=== PATIENT | male | born 1940 | race Caucasian/White ===

== ENCOUNTER 2016-03-29 12:46 | Day surgery (SDC) | payer MEDICARE, OTHER ==
[~2016-03-29] VITALS: Ht 180.3 cm; Wt 108.1 kg
[2016-03-29] VITALS (10 sets, daily range): BP systolic 108–153; BP diastolic 39–80; PULSE 68–94; RESP 11–16; O2SAT 91–95
[~2016-03-29 12:46] MED LIST: ACET-171 PO; AMLO5TAB2 PO; ASCO-294 PO; ASPI-973 PO; CHOL100045 PO; CYAN10008 PO; CeFAZolin Inj 2 GM in IV Premix 1 EACH IV ONE; DEXT5TAB23 PO; DOXA2TAB52 PO; FERR325T6 PO; FINA5TAB9 PO; FLUT9.9S NS; IMMODIUM A-D PO; KEN1O TP; LACT1CAP65 PO; LISD70CA2 PO; LORA10CA PO; LOSA100T29 PO; Lactated Ringer's 1,000 ML IV ONE; METO25TA6 PO; MULT-1018 PO; MYBETRIQ PO; OMEP20CA11 PO; OXYC5TAB72 PO; POLY17PO6 PO; PRAM0.252 PO; TRAM50TA2 PO; TROS20TA4 PO; WARF5TAB7 PO
[2016-03-29] MEDS ORDERED: Ondansetron 2 mg/mL 2 mL Inj ONE (12:47)
[2016-03-29] MEDS ORDERED: Vasopressin 20 Unit/mL Inj ONE (12:47)
[2016-03-29] MEDS ORDERED: Propofol 10,000 mCg/mL 20 mL Inj ONE (12:47)
[2016-03-29] MEDS ORDERED: EPHEDrine/NS 5 mg/mL 5 mL Syringe ONE (12:47)
[2016-03-29] MEDS ORDERED: fentaNYL-PF 50 mCg/mL 2 mL Inj ONE (12:47)
[2016-03-29] MEDS ORDERED: Phenylephrine/NS 100 mCg/mL 10 mL Syringe IVPUSH ONE (12:47)
[2016-03-29 14:51] LABS: INR 0.98 ratio
--- NOTE | 2016-03-29 16:16 | PCM.HPANE ---
Patient Data Surgeon Admitting Provider: Attending Provider:Savannah Rao MD Primary Care Physician:Christiano Nair MD Other Provider: Reason for Visit Bladder Tumor Ht/WT & BMI Height (Feet): 5 Height (Inches): 11 Weight (Kilograms): 109.32 Body Mass Index 33.00 Allergies Coded Allergies: garlic (Verified Allergy, Unknown, 03/29/16) hydrochlorothiazide (Verified Allergy, Unknown, UNKNOWN, 03/29/16) imipramine (Verified Allergy, Unknown, UNKNOWN, 03/29/16) lisinopril (Verified Allergy, Unknown, UNKNOWN, 03/29/16) methocarbamol (Verified Allergy, Unknown, UNKNOWN, 03/29/16) onion (Verified Allergy, Unknown, 03/29/16) tamsulosin (Verified Allergy, Unknown, UNKNOWN, 03/29/16) topiramate (Verified Allergy, Unknown, UNKNOWN, 03/29/16) triamterene (Verified Allergy, Unknown, UNKNOWN, 03/29/16) Past Anesthesia History Anesthesia History: Denies:: Anesthesia Reactions, Malignant Hyperthermia Diabetes History Hx Diabetes?: No MRSA MRSA: No Medications Blood Thinner: Aspirin and Coumadin Last Dose Blood Thinner: Mar 22, 2016 Hypertension Medication: Yes (LOSARTAN, AMLODIPINE,DOXAZOSIN) Home Meds Incl Beta Adelaida: Yes (METOPROLOL) Reported Medications Lisdexamfetamine Dimesylate (Vyvanse)70 Mg Dmbrpyc97 Mg PO DAILY 30 Days Ref 0 03/25/16 Cholecalciferol (Vitamin D3) (Vitamin D)1,000 Unit Capsule3,000 Unit PO DAILY # 1 BOTTLE Ref 0 03/25/16 Ascorbate Calcium (Vitamin C)500 Mg Vznbbu368 Mg PO DAILY 03/25/16 Cyanocobalamin (Vitamin B-12) (Vitamin B-12)1,000 Mcg Tablet1,000 Mcg PO DAILY 03/25/16 Trospium Chloride 20 Mg Tvzikf14 Mg PO BID 03/25/16 Triamcinolone Acet (Triamcinolone Acetonide Ointment)1 Applic/0.25 Gm Oint1 Applic TP BID #60 GM Ref 0 0.1% 03/25/16 Tramadol 50 Mg Tlkmjk81 Mg PO Q4H PRN For Pain Ref 0 03/25/16 Lactobacillus Acidophilus (Probiotic)1 Each Capsule2 Each PO DAILY 03/25/16 Pramipexole Dihydrochloride (Mirapex)0.25 Mg Tablet0.25 Mg PO QID TAKES 02/22 0.25MG TAB 03/25/16 Polyethylene Glycol 3350 (Miralax)17 Gm Powd.pack17 Gm PO DAILY PRN PRN 03/25/16 oxyCODONE 5 Mg Tablet5 Mg PO HS PRN For Pain Ref 0 03/25/16 Omeprazole 20 Mg Capsule.dr20 Mg PO BID Ref 0 03/25/16 [Mybetriq] No Conflict Check50 Mg PO DAILY 03/25/16 Multivitamin (Multi Vitamin Daily)1 Each Tablet1 Each PO DAILY 30 Days Ref 0 03/25/16 Metoprolol Tartrate 25 Mg Kbslkd65 Mg PO BID 30 Days Ref 0 03/25/16 Losartan Potassium 100 Mg Bjhsvz018 Mg PO DAILY 03/25/16 Loratadine (Claritin)10 Mg Pludmvx26 Mg PO DAILY Ref 0 03/25/16 Ferrous Sulfate 325 Mg Tablet.dr325 Mg PO DAILY 30 Days Ref 0 03/25/16 [Immodium A-D] No Conflict Check2-4 Mg PO PRN 03/25/16 Fluticasone Propionate (Flonase Allergy Relief)50 Mcg/Actuation [place].susp9.9 Ml NS DAILY PRN PRN 03/25/16 Finasteride 5 Mg Tablet5 Mg PO DAILY 30 Days Ref 0 03/25/16 Doxazosin (Cardura)2 Mg Tablet2 Mg PO HS Ref 0 03/25/16 Amlodipine 5 Mg Tablet5 Mg PO DAILY Ref 0 03/25/16 Dextroamphetamine/Amphetamine (Adderall)5 Mg Tablet5 Mg PO DAILY PRN PRN Ref 0 03/25/16 Acetaminophen 500 Mg Tablet1,000 Mg PO TID PRN For Pain 03/25/16 Warfarin Sodium 5 Mg Tablet5 Mg PO DAILY 30 Days Ref 0 03/25/16 Aspirin 81 Mg Qyjjbj81 Mg PO DAILY Ref 0 03/25/16 History History of ENT Problems?: Yes HEENT History: Positive for:: Dysphagia (HX OF ESOPHAGEAL STRICTURE) Sinus Problem (SEASONAL ALLERGIES) Other HEENT Pertinent History: S/P TONSILLECTOMY Hx of Heart Problems?: Yes Cardiovascular History: Positive for:: Abdominal Aortic Aneurism (ASCENDING AORTA MOD ENLARGED ON ECHO 09/2013) Hypertension (HYPERLIPIDEMIA) Denies:: Heart Murmur (ECHO 09/2013 EF 55-60%) Irregular Heartbeat (09/2013 C/OF PALPITATIONS ZIO PATCH SOWED PVC'S & BURSTS OF SVT) Valvular Heart Disease Hx of Respiratory Problem?: Yes Respiratory History: Positive for:: Dyspnea (SOTELO) Use of C-PAP Machine (HX OF GENI+ IN PAST-PT DENIES PROBLEMS NOW & USES NO CPAP ) Other Resp Pertinent History: HX OF CATAPEXY/NARCOLEPSY Hx Neurologic Problems?: Yes Other Neurological Pertinent: RLS Hx of GI Problems?: Yes Gastrointestinal History: Positive for:: Gastroesphageal Reflux Other GI Pertinent History: C/OF DIARRHEA & OPIOID-INDUCED CONSTIPATION Hx of Problems?: Yes Other Pertinent History: BLADDER TUMOR=CURRENT PROBLEM C/OF DECREASED STREAM,HEMATURIA,FREQUENCY,NOCTURIA,ED Male Hx: Positive for:: Prostate Problems (BPH W/ LUTS) Denies:: Scrotal Mass Testicular Surgery Skin History: Positive for:: History Skin Disorders? (ACTINIC KERATOSIS) Denies:: Pressure Ulcers Hx Musculoskeletal Problems?: Yes Musculoskeletal History: Positive for:: Musculoskeletal Trauma (S/P LT HIP RPR ) Osteoarthritis (KNEES) Denies:: Back Injury (C/OF LOWER BACK PAIN-HAS HAD INJECTION @ [facility] IN THE PAST) Hx of Psycho/Social Problems?: Yes Psycho Social History: Positive for:: Anxiety Hx Surgeries?: Yes (LT HIP RPR,TONSILLECTOMY) Hx Any Other Health Problems?: Yes Other History: Positive for:: Cancer (BLADDER) Denies:: Endocrine Disease (C/OF NIGHT SWEATS) Hospitalization Thyroid Disease History Blood Transfusions: Denies:: Blood Transfusions Hx Diabetes: No Have You Smoked inLast 12 mo: No Stop/Bang S-Snoring: Do You Snore Loudly: Yes T-Tired: feel tired, fatigued: Yes O-Obsered: Observed not breath: No P-Blood Pressure: treated: Yes B- Body Mass Index > 35 kg/m2: No A- Age over 50: Yes N- Neck Large Circumference: Yes G- Gender Male: Yes GENI Total Score: 6 Risk Assessment Category Category 1A: Patient has history of documented sleep apnea, and HAS NOT received any narcotic, sedative or anesthesia administration during this stay. Category 1B: Patient has history of documented sleep apnea, and HAS received any narcotic , sedative or anesthesia administration during this stay Category 2: Patient has SUSPECTED Obstructive Sleep Apnea, and HAS received any narcotic , sedative or anesthesia administration during this stay. Category 3: Patient has SUSPECTED Obstructive Sleep Apnea and HAS NOT received narcotic, sedative or anesthesia administration during this stay. Category 4: Outpatient in Procedural Areas with known sleep apnea or who screen positive for High Risk via the STOP/BANG questionnaire. Exam Exam General Appearance: Alert, Oriented X3, Cooperative, No Acute Distress HEENT/AIRWAY: MP 3 Lungs: Clear to Auscultation Heart: Exam Unremarkable Plan Impression Patient chart reviewed, patient interviewed and anesthestic plan with risks, benefits, and alternatives discussed, and informed consent obtained. ASA Physical Status: ASA3 Severe Disease Anesthetic Plan: GA Bene/Risks/Altern/Consents: Yes HP Complete Prior to Induction: Yes Bhupendra Ash MD Mar 29, 2016 08:58
[2016-03-29] MEDS ORDERED: Lactated Ringer's 500 ML IV PRN (16:18)
[2016-03-29] MEDS ORDERED: Lactated Ringer's 1,000 ML IV SCH (16:18)
[2016-03-29] MEDS ORDERED: Dexamethasone 4 mg/mL Inj IVPUSH PRN (16:20)
[2016-03-29] MEDS ORDERED: Phenylephrine 10,000 mCg/mL Inj IVPUSH PRN (16:20)
[2016-03-29] MEDS ORDERED: fentaNYL-PF 50 mCg/mL 2 mL Inj IVPUSH PRN (16:20)
[2016-03-29] MEDS ORDERED: HYDROmorphone 1 mg/mL Inj IVPUSH PRN (16:20)
[2016-03-29] MEDS ORDERED: EPHEDrine Sulfate 50 mg/mL Inj IVPUSH PRN (16:20)
[2016-03-29] MEDS ORDERED: MetoCLOpramide 5 mg/mL 2 mL Inj IVPUSH PRN (16:20)
[2016-03-29] MEDS ORDERED: Ondansetron 2 mg/mL 2 mL Inj IVPUSH PRN (16:20)
[2016-03-29] MEDS ORDERED: HYDROcodone-APAP 5-325 mg Tablet PO PRN (16:55)
--- NOTE | 2016-03-29 17:26 | PCM.ANEP1 ---
Post Anesthesia Phase 1 PACU Phase 1 Assessment Vital Signs Vital Signs Date Time Temp Pulse Resp B/P Pulse Ox O2 Delivery O2 Flow Rate FiO2 03/29/16 17:15 36.4 68 16 126/68 94 Room Air 03/29/16 17:10 71 11 108/39 95 Room Air 03/29/16 17:05 70 13 153/73 95 Room Air 03/29/16 17:00 72 14 92 Room Air 03/29/16 16:55 94 12 122/64 91 Simple Mask 8 03/29/16 16:53 36.4 76 16 122/62 92 Simple Mask 8 03/29/16 13:15 36.9 80 14 133/77 92 Room Air Anesthetic Administered: GA Level of Alertness: Awake, talking SCHAEFER's with Equal Strength: Yes Pain: Yes Nausea or Vomiting: No Airway Device: Nasal Airway Oxygen Delivery: Simple Mask Lungs: Clear to Auscultation Dermatome Level: Full Sensation Bhupendra Ash MD Mar 29, 2016 17:26
--- NOTE | 2016-03-29 17:27 | PCM.ANEP2 ---
Post Anesthesia Evaluation ASA/CMS Post Anesthesia VS in Patient's Normal Range?: Yes Resp Stable; Airway Patent?: Yes CV Function & Hydration Stable: Yes Mental Status Recovered?: Yes Pain control Satisfactory?: Yes N/V Control Satisfactory?: Yes Bhupendra Ash MD Mar 29, 2016 17:27
--- NOTE | 2016-03-30 00:36 | OP ---
[address] [address] OPERATIVE REPORT PATIENT: JOSUE LALA : 1940 MR#: [id number] ADMIT: 03/29/2016 JOB ID: [id number] CORRECTED REPORT: DATE OF SURGERY: 03/29/2016 PREOPERATIVE DIAGNOSIS(ES): 1. Bladder tumor. 2. Bladder stones. POSTOPERATIVE DIAGNOSIS(ES): 1. Bladder tumor. 2. Bladder stones. PROCEDURE PERFORMED: 1. Cystoscopy. 2. Cystolitholapaxy. 3. Transurethral section of bladder tumor (greater than 5 cm). 4. Rectal examination under anesthesia. SURGEON: Savannah Rao MD. I&C TECH: None. FINDINGS: 1. Bilateral orthotopic ureteral orifices. 2. Hyperemic bladder base. 3. Low-lying papillary tumors, especially over the right base, lesser so on the left base. There was a distinct tumor at the posterior aspect of the bladder. There are a few scattered papillary tumors, the rest were low-lying papillary tumors carpeting the bladder base. 4. Normal prostate, smooth without nodules. No fixed masses or palpable anomalies on rectal exam. ANESTHESIA: General. ESTIMATED BLOOD LOSS: Less than 5 mL. DRAINS: None. SPECIMENS: Bladder tumor. COMPLICATIONS: None. CONDITION: Stable. INDICATION FOR PROCEDURE: The patient is a 76-year-old gentleman with bladder tumors. On cystoscopy in clinic there was also found to be small bladder stones present. DESCRIPTION OF PROCEDURE: After informed consent was obtained, patient was taken to the operating room. A time-out was performed, identifying correct patient, surgical site and procedure. General anesthesia was smoothly induced. He was given intravenous antibiotics just prior to the start of the procedure. He was placed in the lithotomy position. All pressure points were identified and appropriately padded. A bimanual rectal exam performed. These findings are aforementioned. Genitals were then prepped and draped in usual sterile fashion. A 26-Maltese resectoscope was then applied to patient's urethra and advanced to the bladder. The bladder was drained. Bladder was systematically inspected with both 30 and 70 degree lenses. There were numerous small bladder stones. Some of them were adherent to the carpeted tumor, others were free-floating. These were manipulated off of the bladder tumors with the loop cautery. The stones were evacuated. There were papillary tumors at the base of the bladder in proximity to the bladder neck, encroaching, but not involving, the ureteral orifices. These were resected. Most of the tumor was low- lying and the patient's bladder lining is so thin, it was decided after obtaining specimen with gross muscle present that the rest should be fulgurated with the button. The patient's bladder was drained multiple times and there was excellent hemostasis at the end of the procedure. Patient appeared to tolerate the procedure without apparent complications. He was reversed from general anesthesia and taken to PACU in good and stable condition. Corrected by BD 05/19/16 2:46 pm addenda MTDD
--- NOTE | 2016-03-31 10:44 | PATH ---
SURGICAL PATHOLOGY Attending Physician:Savannah Rao, CASE STATUS: Signed Out PATIENT NAME: JOSUE LALA PID: [id number] : 1940 DATE COLLECTED:03/29/2016 00:00 SPECIMEN: Bladder, Biopsy CLINICAL HISTORY: 1). BLADDER TUMOR FINAL DIAGNOSIS: 1.URINARY BLADDER BIOPSY: PAPILLARY UROTHELIAL CARCINOMA, HIGH GRADE. NEGATIVE FOR EVIDENCE OF INVASION OF LAMINA PROPRIA. NO MUSCULARIS PROPRIA TISSUE IDENTIFIED. ICD10 code C67.9 NOTE: As part of a routine corporate quality engineer, Dr. Delgado Larsen has also reviewed this case and agrees with the diagnosis. GROSS DESCRIPTION: The specimen is received in one formalin filled container labeled with the patient's name, sublabeled "bladder tumor" and consists of multiple portions of tissue which aggregate to 0.6 x 0.6 x 0.3 CM. The specimen is entirely submitted in one cassette. 03/30/2016 [facility] MICRO DESCRIPTION: See diagnosis. ICD-9 CODES: CPT CODES: 1: 91815 Electronically Signed Out Rafal Batres MD [facility] Pathology [facility] [address], [place] [address] Technical component performed at [facility], [facility] [address], [place], [address]
[2016-07-30] MEDS ORDERED: CALC-990 PO (10:25)
[2016-07-30] MEDS ORDERED: TROS20TA4 PO (10:25)
[2016-07-30] MEDS ORDERED: FAMO40TA6 PO (10:25)
== END 2016-03-29 23:59 | disposition home or self-care (01) ==
LOC: SAS 12:46
PROVIDERS: ATTEND Urology
DX: C67.8 Malignant neoplasm of overlapping sites of bladder (principal); R13.10 Dysphagia, unspecified; I10 Essential (primary) hypertension; K21.9 Gastro-esophageal reflux disease without esophagitis; M19.90 Unspecified osteoarthritis, unspecified site; I71.4 Abdominal aortic aneurysm, without rupture; G25.81 Restless legs syndrome; F41.9 Anxiety disorder, unspecified; Z79.82 Long term (current) use of aspirin; Z79.01 Long term (current) use of anticoagulants; Z79.899 Other long term (current) drug therapy
CPT/HCPCS: 36415; 52234; 85610; 88305; J0690; J1170; J2370; J2405; J3010; J7120

== ENCOUNTER 2016-08-02 11:49 | Day surgery (SDC) | payer MEDICARE, OTHER ==
[~2016-08-02] VITALS: Ht 180.3 cm; Wt 107.2 kg
[2016-08-02] VITALS (7 sets, daily range): BP systolic 120–143; BP diastolic 65–92; PULSE 63–70; RESP 12–16; O2SAT 94–100
[~2016-08-02 11:49] MED LIST changes: +CALC-990 PO; -CeFAZolin Inj 2 GM in IV Premix 1 EACH IV ONE; +FAMO40TA6 PO; -FERR325T6 PO; -IMMODIUM A-D PO; +Levofloxacin 500 mg/100 mL D5W IV ONE; -OMEP20CA11 PO; -OXYC5TAB72 PO; -POLY17PO6 PO
[2016-08-02] MEDS ORDERED: Dexamethasone 4 mg/mL Inj ONE (11:50)
[2016-08-02] MEDS ORDERED: Propofol 10,000 mCg/mL 20 mL Inj ONE (11:50)
[2016-08-02] MEDS ORDERED: fentaNYL-PF 50 mCg/mL 2 mL Inj ONE (11:50)
[2016-08-02] MEDS ORDERED: Phenylephrine/NS 100 mCg/mL 10 mL Syringe IVPUSH ONE (11:50)
[2016-08-02] MEDS ORDERED: levoFLOXacin 500 mg/100 mL D5W Premix IV ONE (12:03)
[2016-08-02] MEDS ORDERED: HYDR-3740 PO (12:17)
[2016-08-02] MEDS ORDERED: DIPH25CA6 PO (12:17)
[2016-08-02 13:11] LABS: INR 0.93 ratio
[2016-08-02] MEDS ORDERED: HYDROmorphone 1 mg/mL Inj IVPUSH PRN (14:55)
[2016-08-02] MEDS ORDERED: Lactated Ringer's 1,000 ML IV SCH (14:55)
[2016-08-02] MEDS ORDERED: MetoCLOpramide 5 mg/mL 2 mL Inj IVPUSH PRN (14:55)
[2016-08-02] MEDS ORDERED: Phenylephrine 10,000 mCg/mL Inj IVPUSH PRN (14:55)
[2016-08-02] MEDS ORDERED: fentaNYL-PF 50 mCg/mL 2 mL Inj IVPUSH PRN (14:55)
[2016-08-02] MEDS ORDERED: Labetalol 5 mg/mL 4 mL Inj IV PRN (14:55)
[2016-08-02] MEDS ORDERED: Atropine 0.4 mg/mL Inj IVPUSH PRN (14:55)
[2016-08-02] MEDS ORDERED: Lactated Ringer's 500 ML IV PRN (14:55)
[2016-08-02] MEDS ORDERED: EPHEDrine Sulfate 50 mg/mL Inj IVPUSH PRN (14:55)
[2016-08-02] MEDS ORDERED: Ondansetron 2 mg/mL 2 mL Inj IVPUSH PRN (14:55)
--- NOTE | 2016-08-02 14:55 | PCM.HPANE ---
Patient Data Surgeon Admitting Provider: Attending Provider:Savannah Rao MD Primary Care Physician:Champ Ochoa DO Other Provider:Eva Costa Anesthesia Reason for Visit Bladder Tumor Ht/WT & BMI Height (Feet): 5 Height (Inches): 11 Weight (Kilograms): 107.2 Body Mass Index 33.00 Allergies Coded Allergies: garlic (Verified Allergy, Unknown, UNKNOWN, 08/02/16) hydrochlorothiazide (Verified Allergy, Unknown, UNKNOWN, 08/02/16) imipramine (Verified Allergy, Unknown, UNKNOWN, 08/02/16) lisinopril (Verified Allergy, Unknown, UNKNOWN, 08/02/16) methocarbamol (Verified Allergy, Unknown, UNKNOWN, 08/02/16) onion (Verified Allergy, Unknown, UNKNOWN, 08/02/16) tamsulosin (Verified Allergy, Unknown, UNKNOWN, 08/02/16) topiramate (Verified Allergy, Unknown, UNKNOWN, 08/02/16) triamterene (Verified Allergy, Unknown, UNKNOWN, 08/02/16) Past Anesthesia History Anesthesia History: Denies:: Abnormal Airway, Anesthesia Reactions, Difficult Intubation, Fam Anesthesia Reaction, Fam Malignant Hypertherm, Malignant Hyperthermia Diabetes History Hx Diabetes?: No MRSA MRSA: No Medications Blood Thinner: Aspirin and Coumadin Hypertension Medication: Yes (AMLODIPINE,LOSARTAN) Home Meds Incl Beta Adelaida: Yes (METOPROLOL ) Date Beta Adelaida Taken: Aug 02, 2016 Time Beta Adelaida Taken: 0700 Previous Beta Adelaida Dose >24: Previous Dose <24 Hours Reported Medications Hydrocodone-Acetaminophen 10-325 mg 1 Each Tablet1 Tablet PO Q4H PRN For Pain Ref 0 08/02/16 diphenhydrAMINE HCl (Benadryl)25 Mg Upjfujr59 Mg PO HS PRN Ref 0 08/02/16 Trospium Chloride 20 Mg Zoiixn27 Mg PO BID PRN BLADDER 07/30/16 Calcium Carb/Mag Ox/Zinc Sulf (Aefinve-Iagfswfrk-Blbm Tablet)334 Mg-134 Mg-5 Mg Tablet1 Each PO DAILY 07/30/16 Lisdexamfetamine Dimesylate (Vyvanse)70 Mg Elayrrq24 Mg PO DAILY 30 Days Ref 0 03/25/16 Cholecalciferol (Vitamin D3) (Vitamin D)1,000 Unit Capsule3,000 Unit PO DAILY # 1 BOTTLE Ref 0 03/25/16 Ascorbate Calcium (Vitamin C)500 Mg Pgbils460 Mg PO DAILY 03/25/16 Cyanocobalamin (Vitamin B-12) (Vitamin B-12)1,000 Mcg Tablet1,000 Mcg PO DAILY 03/25/16 Triamcinolone Acet (Triamcinolone Acetonide Ointment)1 Applic/0.25 Gm Oint1 Applic TP BID #60 GM Ref 0 0.1% 03/25/16 Tramadol 50 Mg Htzfae88 Mg PO Q4H PRN For Pain Ref 0 03/25/16 Lactobacillus Acidophilus (Probiotic)1 Each Capsule2 Each PO DAILY 03/25/16 Pramipexole Dihydrochloride (Mirapex)0.25 Mg Tablet0.25 Mg PO QID TAKES 02/22 0.25MG TAB 03/25/16 [Mybetriq] No Conflict Check50 Mg PO DAILY PRN BLADDER 03/25/16 Multivitamin (Multi Vitamin Daily)1 Each Tablet1 Each PO DAILY 30 Days Ref 0 03/25/16 Metoprolol Tartrate 25 Mg Jszrja54 Mg PO BID 30 Days Ref 0 03/25/16 Losartan Potassium 100 Mg Dbsiql93 Mg PO BID 03/25/16 Loratadine (Claritin)10 Mg Wiwzdvh61 Mg PO DAILY Ref 0 03/25/16 Fluticasone Propionate (Flonase Allergy Relief)50 Mcg/Actuation [place].susp9.9 Ml NS DAILY PRN PRN 03/25/16 Finasteride 5 Mg Tablet5 Mg PO DAILY 30 Days Ref 0 03/25/16 Doxazosin (Cardura)2 Mg Tablet2 Mg PO HS Ref 0 03/25/16 Amlodipine 5 Mg Tablet2.5 Mg PO BID Ref 0 03/25/16 Dextroamphetamine/Amphetamine (Adderall)5 Mg Tablet5 Mg PO DAILY PRN PRN Ref 0 03/25/16 Warfarin Sodium 5 Mg Tablet5 Mg PO DAILY 30 Days Ref 0 03/25/16 Aspirin 81 Mg Xhdatd94 Mg PO DAILY Ref 0 03/25/16 Discontinued Reported Medications Famotidine 40 Mg Ncoeag86 Mg PO HS Ref 0 07/30/16 Trospium Chloride 20 Mg Fqhnoi01 Mg PO BID 03/25/16 Acetaminophen 500 Mg Tablet1,000 Mg PO TID PRN For Pain 03/25/16 oxyCODONE 5 Mg Tablet5 Mg PO HS PRN For Pain Ref 0 03/25/16 Omeprazole 20 Mg Capsule.dr20 Mg PO BID Ref 0 03/25/16 Ferrous Sulfate 325 Mg Tablet.dr325 Mg PO DAILY 30 Days Ref 0 03/25/16 [Immodium A-D] No Conflict Check2-4 Mg PO PRN 03/25/16 History History of ENT Problems?: Yes HEENT History: Positive for:: Dysphagia (HX OF ESOPHAGEAL STRICTURE) Sinus Problem (SEASONAL ALLERGIES) Denies:: Abnormal Airway Cataracts Difficult Intubation Glaucoma Hearing Problem TMJ Denture Type: None Teeth Condition: Within Normal Limits Other HEENT Pertinent History: S/P TONSILLECTOMY Hx of Heart Problems?: Yes Cardiovascular History: Positive for:: Abdominal Aortic Aneurism (ASCENDING AORTA MOD ENLARGED ON ECHO 09/2013) Atrial Fibrillation (HX PAF) Hypertension (HYPERLIPIDEMIA) Denies:: Heart Murmur (ECHO 09/2013 EF 55-60%) Irregular Heartbeat (09/2013 C/OF PALPITATIONS ZIO PATCH SOWED PVC'S & BURSTS OF SVT) Valvular Heart Disease Other Cardiac History: denies recent CP or SOTELO Hx of Respiratory Problem?: Yes Respiratory History: Positive for:: Dyspnea (SOTELO) Use of C-PAP Machine (HX OF GENI+ NO CPAP O2 SAT STUDY 05/2016 ??PLANNING SLEEP STUDY) Other Resp Pertinent History: HX CATAPLEXY/NARCOLEPSY Hx Neurologic Problems?: Yes Other Neurological Pertinent: RLS Hx of GI Problems?: Yes Other GI Pertinent History: C/OF INTERMITTANT OPIOD-INDUCED CONSTIPATION Hx of Problems?: Yes Other Pertinent History: HX BLADDER CA,HEMATURIA,LUTS,ED BLADDER TUMOR-=CURRENT PROBLEM S/P TURBT COMPLETED BCG 06/11/16 Male Hx: Positive for:: Prostate Problems (BPH W/ LUTS) Denies:: Scrotal Mass Testicular Surgery Skin History: Positive for:: History Skin Disorders? (ACTINIC KERATOSIS) Denies:: Pressure Ulcers Hx Musculoskeletal Problems?: Yes Musculoskeletal History: Positive for:: Musculoskeletal Trauma (S/P LT HIP RPR ) Osteoarthritis (KNEES) Denies:: Back Injury (C/OF LOWER BACK PAIN-HAS HAD INJECTION @ [facility] IN THE PAST) Hx of Psycho/Social Problems?: Yes Psycho Social History: Positive for:: Anxiety Hx Surgeries?: Yes (LT HIP RPR,TONSILLECTOMY,BCG,TURBT) Hx Any Other Health Problems?: Yes Other History: Positive for:: Cancer (BLADDER) Denies:: Endocrine Disease (C/OF NIGHT SWEATS) Hospitalization Thyroid Disease History Blood Transfusions: Denies:: Blood Transfusions Hx Diabetes: No Smoking Status: Former Smoker Have You Smoked inLast 12 mo: NoApprox How Many Cigarettes/day: CIGARS-2YR HX Stop/Bang S-Snoring: Do You Snore Loudly: No T-Tired: feel tired, fatigued: Yes O-Obsered: Observed not breath: No P-Blood Pressure: treated: Yes B- Body Mass Index > 35 kg/m2: No A- Age over 50: Yes N- Neck Large Circumference: Yes G- Gender Male: Yes GENI Total Score: 5 GENI Risk Assessment: High Risk, =/>3 Yes Risk Assessment Category Category 1A: Patient has history of documented sleep apnea, and HAS NOT received any narcotic, sedative or anesthesia administration during this stay. Category 1B: Patient has history of documented sleep apnea, and HAS received any narcotic , sedative or anesthesia administration during this stay Category 2: Patient has SUSPECTED Obstructive Sleep Apnea, and HAS received any narcotic , sedative or anesthesia administration during this stay. Category 3: Patient has SUSPECTED Obstructive Sleep Apnea and HAS NOT received narcotic, sedative or anesthesia administration during this stay. Category 4: Outpatient in Procedural Areas with known sleep apnea or who screen positive for High Risk via the STOP/BANG questionnaire. Exam Exam Vital Signs Vital Signs Date Time Temp Pulse Resp B/P Pulse Ox O2 Delivery O2 Flow Rate FiO2 08/02/16 12:51 36.5 68 14 125/65 95 Room Air General Appearance: Alert, Oriented X3, Cooperative, No Acute Distress HEENT/AIRWAY: MP 2 Lungs: Clear to Auscultation, Normal Air Movement Heart: Exam Unremarkable, Regular Rate/Rhythm, No Murmurs/Rubs/Gallops Meds/Labs/Diagnostics Admission Meds Current Medications Lactated Ringer's (Lr) 1,000 ml @ 120 mls/hr Q8H20M ONCE IV Last administered on 08/02/16t 12:48; Start 08/02/16 at 05:00; Stop 08/02/16 at 13:19 Labs Test 08/02/16 12:48 Prothrombin Time 9.9sec (8.1-12.5) Prothromb Time International Ratio 0.93ratio Plan Impression Patient chart reviewed, patient interviewed and anesthestic plan with risks, benefits, and alternatives discussed, and informed consent obtained. NPO per Anesth. Guidelines: Yes ASA Physical Status: ASA2 Mod Systemic Disease Anesthetic Plan: GA Bene/Risks/Altern/Consents: Yes HP Complete Prior to Induction: Yes Nirmal Torrez MD Aug 02, 2016 13:16
[2016-08-02] MEDS ORDERED: HYDROcodone-APAP 5-325 mg Tablet PO PRN (15:10)
--- NOTE | 2016-08-02 16:13 | PCM.ANEP1 ---
Post Anesthesia PACU Phase 1 Assessment Vital Signs VSS. see RN notes for VS Vital Signs Date Time Temp Pulse Resp B/P Pulse Ox O2 Delivery O2 Flow Rate FiO2 08/02/16 12:51 36.5 68 14 125/65 95 Room Air Anesthetic Administered: GA Level of Alertness: Sleepy, easy to arouse SCHAEFER's with Equal Strength: Yes Pain: No Nausea or Vomiting: No CV Function & Hydration Stable: Yes Airway Device: Oxygen Delivery: Simple Mask Lungs: Clear to Auscultation, Normal Air Movement PACU Phase 2 Assessment Complications: No Follow up Care: N/A Patient Instructions Provided: N/A Nirmal Torrez MD Aug 02, 2016 16:12
--- NOTE | 2016-08-03 00:46 | OP ---
[address] [address] OPERATIVE REPORT PATIENT: JOSUE LALA : 1940 MR#: [id number] ADMIT: 08/02/2016 JOB ID: [id number] DATE OF SURGERY: 08/02/2016 PREOPERATIVE DIAGNOSIS(ES): History of bladder cancer. POSTOPERATIVE DIAGNOSIS(ES): History of bladder cancer. PROCEDURE PERFORMED: 1. Cystoscopy. 2. Bladder biopsies. SURGEON: Savannah Rao MD ORDNANCE EQUIPMENT WORKER: None. FINDINGS: Bilateral orthotopic ureteral orifices. The right ureteral orifice appeared to be along the line of the heavy trabeculated area of the bladder. Mild erythematous patch around the left posterior bladder base. ANESTHESIA: General. ESTIMATED BLOOD LOSS: Less than 2 mL. DRAINS: None. SPECIMENS: Bladder biopsies. COMPLICATIONS: None. CONDITION: Stable. INDICATION FOR PROCEDURE: The patient is a 76-year-old gentleman, with history of bladder cancer. He is status post BCG induction therapy. He now presents for post BCG bladder biopsies. DESCRIPTION OF PROCEDURE: After informed consent was obtained, the patient was taken to the operating room. A time-out was performed identifying correct patient, surgical site, and procedure. General anesthesia was smoothly induced. He was placed in lithotomy position and all pressure points were identified and appropriately padded. His genitals were then prepped and draped in usual sterile fashion. A 22-Chinese rigid cystoscope was applied to the patient's urethra and advanced into the bladder. The bladder was drained. The bladder was systematically inspected, both 30 and 70 degree lenses. The findings were aforementioned. Along the mildly erythematous patch at the left posterior base, cold cup biopsy forceps were used to biopsy this area in two places. Good samples were obtained. Cold cup biopsy forceps were also taken just posterior to the trigone as well as the right lateral aspect of the bladder. These were passed off the table as bladder biopsies. Bugbee electrode was used to cauterize these areas. The bladder was drained and re-inspected. There was no bleeding. The patient appeared to tolerate the procedure well without apparent complications. He was reversed from general anesthesia and taken to PACU in good stable condition. [facility]PITALNoemí
--- NOTE | 2016-08-03 15:43 | PATH ---
SURGICAL PATHOLOGY Attending Physician:Savannah Rao, CASE STATUS: Signed Out PATIENT NAME: JOSUE LALA PID: [id number] : 1940 DATE COLLECTED:08/02/2016 00:00 SPECIMEN: Bladder, Biopsy CLINICAL HISTORY: 1). 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 FOCAL GRANULOMAS PRESENT CONSISTENT WITH CHANGES SECONDARY TO BCG THERAPY. Negative for malignancy. ICD10 Z85.51 GROSS DESCRIPTION: Received in formalin, labeled with the patient' s name and "bladder biopsies", is a collection of almodovar tissue fragments measuring 0.5 x 0.3 x 0.2 cm in aggregate. All fragments are totally submitted in cassette 1A. ([id number]) MICRO DESCRIPTION: See diagnosis. ICD-9 CODES: CPT CODES: 1: 96947 Electronically Signed Out Rafal Batres MD [facility] Pathology [facility] [address], [place] [address] Technical component performed at [facility], [facility] [address], [place], [address]
== END 2016-08-02 23:59 | disposition home or self-care (01) ==
LOC: SAS 11:49
PROVIDERS: ATTEND Urology
DX: N30.20 Other chronic cystitis without hematuria (principal); Z85.51 Personal history of malignant neoplasm of bladder; N40.0 Benign prostatic hyperplasia without lower urinary tract symptoms; I10 Essential (primary) hypertension; E78.5 Hyperlipidemia, unspecified; G47.00 Insomnia, unspecified; G47.411 Narcolepsy with cataplexy; F51.9 Sleep disorder not due to a substance or known physiological condition, unspecified; I48.0 Paroxysmal atrial fibrillation; G47.33 Obstructive sleep apnea (adult) (pediatric); Z87.891 Personal history of nicotine dependence; E66.9 Obesity, unspecified; Z68.33 Body mass index [BMI] 33.0-33.9, adult; Z79.82 Long term (current) use of aspirin; Z79.01 Long term (current) use of anticoagulants
CPT/HCPCS: 36415; 52204; 85610; J1100; J2370; J3010; J7120